=== PATIENT | male | born 1985 | race Caucasian/White ===

== ENCOUNTER 2016-09-09 11:09 | Emergency (ER) | payer OTHER ==
--- NOTE | 2016-09-09 12:46 | EDPHY ---
H & P Stated Complaint: oral lesions/st Time Seen by Provider: 09/09/16 12:13 HPI/ROS: CHIEF COMPLAINT: sore throat, sore on tongue and lip HISTORY OF PRESENT ILLNESS: 31-year-old male presents to the emergency department complaining of a sore throat and a sore on his lower lip and tongue that are painful. Patient denies fevers or chills, no abdominal pain, no difficulty urinating, dysuria, urinary frequency, urgency. Patient reports having oral sex with 2 different men last week. Patient takes Truvada for pre exposure prophylaxis. Denies urinary symptoms, joint pain, penile discharge, abdominal pain, nausea vomiting or diarrhea. REVIEW OF SYSTEMS: A comprehensive 10 point review of systems is otherwise negative aside from elements mentioned in the history of present illness. Source: Patient Exam Limitations: No limitations - Personal History Current Tetanus/Diphtheria Vaccine: Yes Tetanus Vaccine Date: 2009 - Medical/Surgical History Hx Asthma: No Hx Chronic Respiratory Disease: No Hx Diabetes: No Hx Cardiac Disease: No Hx Renal Disease: No Hx Cirrhosis: No Hx Alcoholism: No Hx HIV/AIDS: No Hx Splenectomy or Spleen Trauma: No Other PMH: HX: SZ, Depression, anxiety disorder, aspergers, OCD - Social History Smoking Status: Former smoker - Physical Exam Exam: General: Alert, nontoxic. ENT: Tympanic membranes clear, external auditory canal, external ear and surrounding soft tissue including over the mastoid unremarkable. Nasopharynx is not injected, there is no rhinorrhea. Oropharynx with erythema. There is exudate. No tonsillar hypertrophy. No asymmetry. The uvula is midline. No elevation of tongue. There is no hoarseness. No drooling, patient has good control of their oral secretions. No trismus. No stridor. Herpetic like lesions to inside lower lip and middle posterior tongue, painful. Cardiac: Regular rate and rhythm. Respiratory: Lungs clear to auscultation bilaterally. Neurological: no meningismus. Skin: No rashes. Constitutional: Initial Vital Signs Temperature (C) 36.7 C 09/09/16 11:17 Heart Rate 88 09/09/16 11:17 Respiratory Rate 20 09/09/16 11:17 Blood Pressure 118/80 09/09/16 11:17 O2 Sat (%) 94 09/09/16 11:17 O2 Delivery Mode Room Air Allergies/Adverse Reactions: atomoxetine HCl [From Strattera] Allergy (Mild, Verified 09/09/16 11:16) LOWERS SEIZURE THRESHHOLD hydrocodone [Hydrocodone] Allergy (Mild, Verified 09/09/16 11:16) NAUSEA Sulfa (Sulfonamide Antibiotics) Allergy (Verified 09/09/16 11:16) Rash tramadol Allergy (Verified 09/09/16 11:16) SEIZURE Home Medications: Medication Instructions Recorded Methamphetamine HCl [Desoxyn] 10 mg PO DAILY@1800 10/22/13 Methamphetamine HCl [Desoxyn] 15 mg PO DAILY@1200 10/22/13 Methamphetamine HCl [Desoxyn] 20 mg PO DAILY 10/22/13 Truvada 100 mg-150 mg Tablet 07/04/16 Acyclovir 400 mg PO TID #30 tablet 09/09/16 Oxycodone HCl 5 mg PO Q4-6PRN PRN #10 tablet 09/09/16 Medical Decision Making ED Course/Re-evaluation: 31-year-old male presents with a sore throat and sore on his tongue and lip. He is sexually active giving oral sex to multiple men on a regular basis. Rapid strep is negative, throat was swabbed for gonorrhea, lip and tongue sores were swapped for HSV. Patient is treated with IM Rocephin and Zithromax for gonorrhea, he has been discharged with a prescription for acyclovir for the sore on his tongue and lips thought to be HSV. Patient agrees to follow up with his primary care doctor or [place] where he is followed this next week for re-evaluation. He is given strict return precautions for worsening symptoms. Differential Diagnosis: Diagnosis considered but not limited to STD, strep pharyngitis, viral pharyngitis - Data Points Laboratory Results: 09/09/16 09/09/16 09/09/16 Unknown 13:35 13:35 HSV Source Description Pending HSV I DNA PCR Pending HSV II DNA PCR Pending N.gonorrhoeae RNA (TMA) Pending Group A Strep Screen Group A Strep DNA Pending 09/09/16 11:20 HSV Source Description HSV I DNA PCR HSV II DNA PCR N.gonorrhoeae RNA (TMA) Group A Strep Screen NEGATIVE (NEGATIVE) Group A Strep DNA Medications Given: Discontinued Medications Azithromycin (Zithromax) 1,000 mg PO EDNOW ONE PRN Reason: Protocol Stop: 09/09/16 13:17 Last Admin: 09/09/16 13:46 Dose: 1,000 mg Ceftriaxone Sodium (Rocephin Im Syringe) 250 mg IM EDNOW ONE PRN Reason: Protocol Stop: 09/09/16 13:17 Last Admin: 09/09/16 14:15 Dose: 250 mg Ceftriaxone Sodium (Rocephin Im Syringe) 250 mg IM ONCE ONE Stop: 09/09/16 14:01 Last Admin: 09/09/16 14:17 Dose: Not Given Departure - Departure Disposition: Home, Routine, Self-Care Clinical Impression: Acute pharyngitis Qualifiers: Pharyngitis/tonsillitis etiology: unspecified etiology Qualified Code(s): J02.9 - Acute pharyngitis, unspecified Condition: Good Instructions: Sexually Transmitted Diseases (ED), Pharyngitis (ED) Additional Instructions: Take 600 mg of ibuprofen every 8 hours with food, take 5 mg of oxycodone every 4 -6 hours as needed for severe pain. Take the acyclovir as prescribed. Follow up with Dr. Rowley or Dr. Hunter next week for re-evaluation. Return to the emergency department for worsening symptoms, new symptoms or concerns. Referrals: SUMANTH ROWLEY [Primary Care Provider] - As per Instructions Prescriptions: Acyclovir 400 mg PO TID #30 tablet Oxycodone HCl 5 mg PO Q4-6PRN PRN #10 tablet PRN Reason: Pain, Breakthrough
[2016-09-09] MEDS ORDERED: CEFTRIAXONE IM 350 MG/ML SYRINGE IM ONE ×2 (13:16→14:00)
[2016-09-09] MEDS ORDERED: AZITHROMYCIN 250 MG TAB PO ONE (13:16)
[2016-09-09 14:18] VITALS: BP 123/72; PULSE 79; RESP 16; TEMP 98.2; O2SAT 92
[2016-09-09] MEDS ORDERED: PENICILLIN VK 500 MG TAB PO ONE (20:08)
[2016-09-09] MEDS ORDERED: PENICILLIN VK 250 MG TAB ONE (20:26)
[2016-09-11 21:47] LABS: SPECIMEN SOURCE LIP AND TONGUE
== END 2016-09-09 14:41 | disposition home or self-care (01) ==
DX: J02.9 Acute pharyngitis, unspecified (principal); Z87.891 Personal history of nicotine dependence
CPT/HCPCS: 87529-90; J0696

== ENCOUNTER 2016-09-10 17:28 | Emergency (ER) | payer OTHER ==
[2016-09-10 17:33] VITALS: BP 131/83; PULSE 90; RESP 16; TEMP 98.8; O2SAT 93
[2016-09-10] MEDS ORDERED: DEXAMETHASONE 4 MG TAB PO ONE (18:08)
--- NOTE | 2016-09-10 18:08 | EDPHY ---
H & P Stated Complaint: Sore throat;seen here yesterday HPI/ROS: CHIEF COMPLAINT: Sore throat, mouth pain HISTORY OF PRESENT ILLNESS: several days duration of sore throat and mouth pain. Moderate to severe pain that has worsened since yesterday. Pain is all over the mouth and tongue. No fever. No difficulty swelling and does have odynophagia. No headache or dizziness. No chest or back pain or urinary complaints. He was seen here and diagnosed with strep pharyngitis and possible sexually transmitted infection. He was treated with Rocephin and Zithromax and discharged home with penicillin and pain medications. He says the pain medication is almost out and not improved his pain enough. Worse with any intake by mouth. No other associated complaints or modifying factors. REVIEW OF SYSTEMS: Ten systems reviewed and are negative unless otherwise noted in the HPI EXAMINATION General Appearance: Alert, no distress Head: normocephalic, atraumatic Eyes: Pupils equal and round, no conjunctival pallor or injection ENT, Mouth: Mucous membranes moist . There are multiple aphthous ulcers to the tongue and mucosa. Airway is patent. No posterior edema but there is erythema and purulence of the tonsils. No abnormality of the floor of the mouth. Neck: Normal inspection, supple, non-tender There is anterior cervical lymphadenopathy. Respiratory: No distress or retractions. Skin: Warm and dry, no rash Extremities: Nontender, no pedal edema Psychiatric: Mood and affect normal DIFFERENTIAL DIAGNOSES: Including but not limited to Strep pharyngitis, aphthous ulcers, HSV stomatitis, gingivostomatitis MDM: 6:05 p.m. strep pharyngitis with stomatitis and vesicular lesions of the mouth. The patient was treated with Rocephin and Zithromax yesterday. He was discharged home on penicillin and pain medications. His pain is significantly worse. He is in no acute distress, and his airway is intact. I will treat him with further pain medication and dose of steroid. Likely herpetic infection of the mouth on top of a positive strep pharyngitis. He was treated prophylactically for gonorrhea and chlamydia yesterday. Patient is comfortable with this plan and will follow up with [facility] for further care. SUPERVISION: This patient was independently evaluated without the aide of supervising physician. Source: Patient, Old records Exam Limitations: No limitations - Personal History Current Tetanus Diphtheria and Acellular Pertussis (TDAP): Yes Tetanus Vaccine Date: 2009 - Medical/Surgical History Hx Asthma: No Hx Chronic Respiratory Disease: No Hx Diabetes: No Hx Cardiac Disease: No Hx Renal Disease: No Hx Cirrhosis: No Hx Alcoholism: No Hx HIV/AIDS: No Hx Splenectomy or Spleen Trauma: No Other PMH: HX: SZ, Depression, anxiety disorder, aspergers, OCD - Social History Smoking Status: Former smoker Constitutional: Initial Vital Signs Temperature (C) 98.8 F 09/10/16 17:31 Heart Rate 90 09/10/16 17:31 Respiratory Rate 16 09/10/16 17:31 Blood Pressure 131/83 H 09/10/16 17:31 O2 Sat (%) 93 09/10/16 17:31 O2 Delivery Mode Room Air Allergies/Adverse Reactions: atomoxetine HCl [From Strattera] Allergy (Mild, Verified 09/10/16 17:30) LOWERS SEIZURE THRESHHOLD hydrocodone [Hydrocodone] Allergy (Mild, Verified 09/10/16 17:30) NAUSEA Sulfa (Sulfonamide Antibiotics) Allergy (Verified 09/10/16 17:30) Rash tramadol Allergy (Verified 09/10/16 17:30) SEIZURE Home Medications: Medication Instructions Recorded Methamphetamine HCl [Desoxyn] 10 mg PO DAILY@1800 10/22/13 Methamphetamine HCl [Desoxyn] 15 mg PO DAILY@1200 10/22/13 Methamphetamine HCl [Desoxyn] 20 mg PO DAILY 10/22/13 Truvada 100 mg-150 mg Tablet 07/04/16 Acyclovir 400 mg PO TID #30 tablet 09/09/16 Oxycodone HCl 5 mg PO Q4-6PRN PRN #10 tablet 09/09/16 Lidocaine 2% Viscous 10 ml MM Q6 PRN #100 ml 09/10/16 Penicillin V Potassium [Penicillin 500 mg PO 09/10/16 VK] oxyCODONE HCL/ACETAMINOPHEN 1 each PO Q6 PRN #20 tablet 09/10/16 [Percocet 7.5-325 mg Tablet] Departure - Departure Disposition: Home, Routine, Self-Care Clinical Impression: Strep pharyngitis, Stomatitis Condition: Good Instructions: Canker Sores (ED), Oral Mucositis (ED) Additional Instructions: Follow up with [facility] as previously discussed. Return to the ER for worsening pain Referrals: SUMANTH HEADLEY [Primary Care Provider] - As per Instructions Prescriptions: Lidocaine 2% Viscous 10 ml MM Q6 PRN #100 ml PRN Reason: Pain, Mild oxyCODONE HCL/ACETAMINOPHEN [Percocet 7.5-325 mg Tablet] 1 each PO Q6 PRN #20 tablet PRN Reason: Pain, Mild
[2016-09-10] MEDS ORDERED: DEXAMETHASONE 10 MG/ML VIAL ONE (18:58)
[2016-09-10] MEDS ORDERED: DEXAMETHASONE VARIABLE DOSE IVP/PO ONE (19:00)
== END 2016-09-10 19:11 | disposition home or self-care (01) ==
DX: K12.1 Other forms of stomatitis (principal); J02.0 Streptococcal pharyngitis; Z87.891 Personal history of nicotine dependence

== ENCOUNTER 2017-02-02 12:56 | Emergency (ER) | payer OTHER ==
[2017-02-02 13:01] VITALS: BP 123/80
[2017-02-02] MEDS ORDERED: LET GEL TOPICAL 1 EA SYR TP ONE (13:04)
--- NOTE | 2017-02-02 13:07 | EDPHY ---
H & P Stated Complaint: FALL SKATEBOARDING, +LOC - Personal History Current Tetanus/Diphtheria Vaccine: Yes Tetanus Vaccine Date: 2009 - Medical/Surgical History Hx Asthma: No Hx Chronic Respiratory Disease: No Hx Diabetes: No Hx Cardiac Disease: No Hx Renal Disease: No Hx Cirrhosis: No Hx Alcoholism: No Hx HIV/AIDS: No Hx Splenectomy or Spleen Trauma: No Other PMH: HX: SZ, Depression, anxiety disorder, aspergers, OCD - Social History Smoking Status: Former smoker Time Seen by Provider: 02/02/17 13:02 Constitutional: Initial Vital Signs Temperature (C) 36.8 C 02/02/17 12:58 Heart Rate 96 02/02/17 12:58 Respiratory Rate 16 02/02/17 12:58 Blood Pressure 123/80 H 02/02/17 12:58 O2 Sat (%) 96 02/02/17 12:58 Allergies/Adverse Reactions: atomoxetine HCl [From Strattera] Allergy (Mild, Verified 09/10/16 17:30) LOWERS SEIZURE THRESHHOLD Sulfa (Sulfonamide Antibiotics) Allergy (Verified 09/10/16 17:30) Rash tramadol Allergy (Verified 09/10/16 17:30) SEIZURE Home Medications: Medication Instructions Recorded Methamphetamine HCl [Desoxyn] 10 mg PO DAILY@1800 10/22/13 Methamphetamine HCl [Desoxyn] 15 mg PO DAILY@1200 10/22/13 Methamphetamine HCl [Desoxyn] 20 mg PO DAILY 10/22/13 Truvada 100 mg-150 mg Tablet 07/04/16 Acyclovir 400 mg PO TID #30 tablet 09/09/16 oxyCODONE HCL [Oxycodone HCl] 5 mg PO Q4-6PRN PRN #10 tablet 09/09/16 Lidocaine 2% Viscous 10 ml MM Q6 PRN #100 ml 09/10/16 Penicillin V Potassium [Penicillin 500 mg PO 09/10/16 VK] oxyCODONE HCL/ACETAMINOPHEN 1 each PO Q6 PRN #20 tablet 09/10/16 [Percocet 7.5-325 mg Tablet] Medical Decision Making - Diagnostics Imaging Results: Imaging Impressions Cervical Spine CT 02/02/17 13:03 Impression: 1. No significant intracranial abnormality seen. 2. Normal CT cervical spine. 3. Small chip fracture suspected along the left anterior occipital condyle. Findings discussed with Mikhail Rosen MD at 13:58 hour, 02/02/2017. Head CT 02/02/17 13:03 Impression: 1. No significant intracranial abnormality seen. 2. Normal CT cervical spine. 3. Small chip fracture suspected along the left anterior occipital condyle. Findings discussed with Mikhail Rosen MD at 13:58 hour, 02/02/2017. Procedures: My involvement the care this patient is solely for the procedure. Please see the note of Dr. Rosen for all other aspects of care PROCEDURE: Laceration repair Consent: Verbal Location: Left side of scalp, just left of midline Length of repair: 2.5 cm, irregular shaped and stellate Complexity: Simple Layer involvement: Single Anesthesia: Local, 1% lidocaine without epinephrine, 5 mL Irrigation: Extensive Debridement: None Procedure description: Following good anesthesia, the wound was copiously irrigated. Wound bed was explored and there is no foreign body noted. There is no injury to her compromise of the gala or underlying osseous school. Wound borders were approximated well with good hemostasis. Tolerated well without complication. Suture/Staple material: 4 prosper Wound care: Routine as discussed Suture/Staple removal: 10 Days (Feliz Wright) ED Course/Re-evaluation: CHIEF COMPLAINT: Fall off skateboard HISTORY OF PRESENT ILLNESS: Healthy 31-year-old gentleman who had something fell off his skateboard. He hit the left side of his forehead and the top of his head. He is complaining specifically of a brief loss of consciousness and some nausea. He denies any neurologic deficits. He also has some abrasions and lacerations on the left side of his forehead and face and his anterior scalp please see physical exam for details. He otherwise is on injury. He also has some mild neck pain along the occiput. REVIEW OF SYSTEMS: A 10 point review of systems was performed and is negative with the exception of the elements mentioned in the history of present illness. PHYSICAL EXAM: HR, BP, O2 Sat, RR. Temp noted General Appearance: Alert, well hydrated, appropriate, and non-toxic appearing. Head: Atraumatic without scalp tenderness or obvious injury Eyes: Pupils equal, round, reactive to light and accommodation, EOMI, no trauma , no injection. Ears: Clear bilaterally, no perforation, normal landmarks Nose: Atraumatic, no rhinorrhea, clear. Throat: There is no erythema or exudates, no lesions, normal tonsils, mucus membranes moist. Neck: Supple, 2+ carotid upstroke, nontender, no lymphadenopathy. Respiratory: No retractions, no distress, no wheezes, and no accessory muscle use. Lungs are clear to auscultation bilaterally. Cardiovascular: Regular rate and rhythm, no murmurs, rubs, or gallops. Bilateral carotid, radial, dorsalis pedis, and posterior tibial pulses intact. Good capillary refill all extremities. Gastrointestinal: Abdomen is soft, nontender, non-distended, no masses, no rebound, no guarding, no peritoneal signs. Musculoskeletal: Pain at the top of the occiput collars been left on until CT scan. Normal active ROM of all extremities, atraumatic. Neurological: Alert, appropriate, and interactive. The patient has normal DTRs and non-focal cranial nerves, motor, sensory, and cerebellar exam. Skin: Numerous abrasions and lacerations left eyebrow left forehead top of the forehead and knuckles. Please see Candis right dictation for repairs. No rashes, good turgor, no nodules on palpation. Past medical history: Patient denies Past surgical history: Patient denies Family history: Noncontributory Social history: Single, employed, does not abuse tobacco drugs or alcohol DIAGNOSTICS/PROCEDURES/CRITICAL CARE TIME: Study: CT of the head and cervical spine Indication: trauma Results: CT scan of the head and cervical spine was obtained. The results of the study are tiny chip fracture off the left occipital condyle otherwise unremarkable. The study was read by the radiologist, Dr. David Donato. I viewed the images myself on the PACS system. DIFFERENTIAL DIAGNOSIS: The differential diagnosis for the patient's trauma included but was not limited to intracranial injury, long bone and pelvic bone fractures, spinal injury, intra-abdominal injury, and intra-thoracic injury. MEDICAL DECISION MAKING: This patient had a loss of consciousness after a skateboard accident. He has numerous abrasions and lacerations. Physician ob gyn physician assistant Corwin Wright will repair his lacerations and abrasions. We have applied Lat to those abrasions and are clean them thoroughly. In addition he is getting a CT scan of his head and neck. This patient has a small chip fracture over the left occipital condyle. All of his wounds have been thoroughly cleansed and repaired. I have spoke to Dr. Vikram Licea from Neurosurgery who is reviewing the films to see if there is any further treatment needed for the occipital condyle chip fracture. Dr. Rose reviewed the films and recommends the patient have a soft collar for a week or so and follow up with them. He does not actually feel like this tiny bony fragment is a chip fracture from an acute trauma any feels like it is a small degenerative change may be a small osteophyte. Regardless, the patient is having no neurologic problems. The patient has very minimal pain at the base of his skull. We will give him a comfortable calling him follow up with Dr. Rose. Also given pain meds. (Mikhail Rosen) - Data Points Medications Given: Discontinued Medications Ondansetron HCl (Zofran Odt) 4 mg PO EDNOW ONE Stop: 02/02/17 13:36 Last Admin: 02/02/17 13:38 Dose: 4 mg Oxycodone/Acetaminophen (Percocet 5/325) 2 tab PO EDNOW ONE Stop: 02/02/17 13:35 Last Admin: 02/02/17 13:38 Dose: 2 tab Tetracaine/Epinephrine/Lidocaine (Let Gel Topical) 2 ea TP EDNOW ONE Stop: 02/02/17 13:05 Last Admin: 02/02/17 13:15 Dose: 1 ea Departure - Departure Disposition: Home, Routine, Self-Care Clinical Impression: Abrasion Fall from skateboard Qualifiers: Encounter type: initial encounter Qualified Code(s): V00.131A - Fall from skateboard, initial encounter Fracture of occipital condyle Qualifiers: Encounter type: initial encounter Fracture type: closed Laterality: left Qualified Code(s): S02.113A - Unspecified occipital condyle fracture, initial encounter for closed fracture Face lacerations Qualifiers: Encounter type: initial encounter Qualified Code(s): S01.81XA - Laceration without foreign body of other part of head, initial encounter Condition: Good Instructions: Skull Fracture (ED), Abrasion (ED), Laceration (ED) Additional Instructions: Wear the soft collar for 1-2 weeks and then follow up with Neurosurgery. Referrals: Patient,NotPresent [Primary Care Provider] - As per Instructions Vikram Licea MD [Medical Doctor] - As per Instructions
[2017-02-02] MEDS ORDERED: OXYCODONE/APAP 5/325 TAB PO ONE (13:34)
[2017-02-02] MEDS ORDERED: ONDANSETRON DISINTEGRATING 4 MG TAB PO ONE (13:35)
[2017-02-02 14:55] VITALS: PULSE 80; RESP 18; TEMP 98.6; O2SAT 94
== END 2017-02-02 14:54 | disposition home or self-care (01) ==
LOC: EDUNIT#
PROC: 0HQ0XZZ Repair Scalp Skin, External Approach (ICD-10-PCS; principal; 2017-02-02)
DX: S02.113A Unspecified occipital condyle fracture, initial encounter for closed fracture (principal); S01.81XA Laceration without foreign body of other part of head, initial encounter; Z87.891 Personal history of nicotine dependence; V00.131A Fall from skateboard, initial encounter; Y93.51 Activity, roller skating (inline) and skateboarding

== ENCOUNTER 2017-07-20 09:55 | Emergency (ER) | payer OTHER ==
[2017-07-20 10:05] VITALS: BP 116/89; PULSE 91; RESP 16; TEMP 97.5; O2SAT 95
--- NOTE | 2017-07-20 10:21 | EDPHY ---
H & P Time Seen by Provider: 07/20/17 10:06 HPI/ROS: CHIEF COMPLAINT: Sore throat since yesterday HISTORY OF PRESENT ILLNESS: 32-year-old immunocompetent male complaining sore throat since yesterday. No flu-like symptoms. His boyfriend tested positive for strep pharyngitis 3 days ago. No fever no chills. No nausea or vomiting. No change in voice. No nuchal rigidity. No chest pain. No abdominal pain. No rash. No headache. REVIEW OF SYSTEMS: A ten point review of systems was performed and is negative with the exception of the items mentioned in the HPI PAST MEDICAL & SURGICAL HISTORY: No pertinent medical or surgical history SOCIAL HISTORY: Student PHYSICAL EXAM (Prior to examination, patient consented to physical exam, hands were washed and my usual and customary physical exam procedures followed) 1) GENERAL: Well-developed, well-nourished, alert and oriented. Appears nontoxic 2) HEAD: Normocephalic, atraumatic 3) HEENT: Pupils equal, round, reactive to light bilaterally. Sclera anicteric. Oropharynx: Bilaterally enlarged, symmetrical, exudate of tonsils. No trismus no drooling. No hot potato voice. No signs of peritonsillar abscess Ears bilaterally with normal tympanic membranes. 4) NECK: Full range of motion, no meningeal signs. 5) LUNGS: Clear auscultation bilaterally, no wheezes, no rhonchi, no retractions. 6) HEART: Regular rate and rhythm, no murmur, no heave, no gallop. 7) ABDOMEN: [No guarding, no rebound, no focal tenderness, negative McBurney's,, 8) MUSCULOSKELETAL: No peripheral edema or discoloration. 9) BACK: No visual or palpable abnormality. 10) SKIN: No rash, no petechiae. 11) Psychiatric: Patient is oriented X 3, there is no agitation. DIFFERENTIAL DIAGNOSIS: In no particular order including but not limited to strep pharyngitis, peritonsillar abscess, viral pharyngitis Smoking Status: Never smoked Constitutional: Initial Vital Signs Temperature (C) 36.4 C 07/20/17 10:02 Heart Rate 91 07/20/17 10:02 Respiratory Rate 16 07/20/17 10:02 Blood Pressure 116/89 H 07/20/17 10:02 O2 Sat (%) 95 07/20/17 10:02 O2 Delivery Mode Room Air Allergies/Adverse Reactions: atomoxetine HCl [From Strattera] Allergy (Mild, Verified 09/10/16 17:30) LOWERS SEIZURE THRESHHOLD Sulfa (Sulfonamide Antibiotics) Allergy (Verified 09/10/16 17:30) Rash tramadol Allergy (Verified 09/10/16 17:30) SEIZURE Home Medications: Medication Instructions Recorded Methamphetamine HCl [Desoxyn] 10 mg PO DAILY@1800 10/22/13 Methamphetamine HCl [Desoxyn] 15 mg PO DAILY@1200 10/22/13 Methamphetamine HCl [Desoxyn] 20 mg PO DAILY 10/22/13 Truvada 100 mg-150 mg Tablet 07/04/16 Acyclovir 400 mg PO TID #30 tablet 09/09/16 oxyCODONE HCL [Oxycodone HCl] 5 mg PO Q4-6PRN PRN #10 tablet 09/09/16 Lidocaine 2% Viscous 10 ml MM Q6 PRN #100 ml 09/10/16 Penicillin V Potassium [Penicillin 500 mg PO 09/10/16 VK] oxyCODONE HCL/ACETAMINOPHEN 1 each PO Q6 PRN #20 tablet 09/10/16 [Percocet 7.5-325 mg Tablet] Ondansetron Odt [Zofran Odt 4 mg 4 mg PO Q4 PRN #10 tab 02/02/17 (RX)] oxyCODONE IR [Oxycodone Ir (*)] 5 - 10 mg PO Q6 PRN #20 tab 02/02/17 Ibuprofen [Motrin (*)] 800 mg PO Q6 #15 tab 07/20/17 Penicillin V Potassium [Pen Vk] 500 mg PO Q6 10 Days tab 07/20/17 MDM/Departure - MDM ED Course/Re-evaluation: High clinical suspicion for strep pharyngitis based on patient's presenting symptoms, his boyfriend was diagnosed with strep pharyngitis recently as well. Plan will be empiric treatment. Doubt peritonsillar abscess. Usual and customary pharyngitis precautions and instructions provided. Care of patient under supervision of secondary supervising physician Dr Rosen . - Depart Disposition: Home, Routine, Self-Care Clinical Impression: Acute streptococcal pharyngitis Condition: Good Instructions: Strep Throat (DC), Strep Throat (ED) Additional Instructions: Return to the ER immediately if you cannot swallow, have drooling, fevers, neck stiffness, cannot open your jaw, or any other symptoms that concern you. Prescriptions: Ibuprofen [Motrin (*)] 800 mg PO Q6 #15 tab Penicillin V Potassium [Pen Vk] 500 mg PO Q6 10 Days tab Referrals: SUMANTH HEADLEY [Primary Care Provider] - 3-4 days, if not improved
== END 2017-07-20 11:04 | disposition home or self-care (01) ==
DX: J02.0 Streptococcal pharyngitis (principal)

== ENCOUNTER 2017-12-29 09:59 | Emergency (ER) | payer OTHER ==
[2017-12-29] MEDS ORDERED: LET GEL TOPICAL 1 EA SYR TP ONE (10:19)
--- NOTE | 2017-12-29 10:24 | EDPHY ---
H & P Smoking Status: Never smoked Time Seen by Provider: 12/29/17 10:14 HPI/ROS: CHIEF COMPLAINT: Seizure HISTORY OF PRESENT ILLNESS: The patient is a 32-year-old male with a history of epilepsy who presents emergency department after having a seizure and subsequent fall. Patient was going to the store to get some food for breakfast. Patient was witnessed to have seizure activity and fall the ground. He has a large laceration on his head. He describes mild face discomfort. Patient has a mild headache. Patient denies any neck pain. No chest pain or shortness of breath. No abdominal pain. No focal weakness or numbness. Patient states he has roughly 1 seizure every couple of months. He is not taking any anti seizure medication. REVIEW OF SYSTEMS: My complete review of systems is negative except as mentioned in the HPI. ( China Herron) Past Medical/Surgical History: Includes epilepsy, depression, anxiety, Asperger's, OCD Past surgical history: Right shoulder surgery (China Herron) Physical Exam: Vitals noted. Heart rate 111. GENERAL: No acute distress, alert.] HEAD: The patient has a cyst the 5 cm laceration vertically on his forehead. There is mild hematoma. No crepitus. EYES: PERRLA, EOMI, normal to inspection. ENT: The patient is nose is slightly offset to the left. He states this is his baseline. Airway intact, no dental or oral injury, no malocclusion, no hemotympanum, normal external examination. There is a 1 cm laceration on the right lateral aspect of his cheek. NECK: The trachea is midline. There is no crepitus. The C-spine is nontender. NEXUS criteria is negative (no midline tenderness, no distracting injury, no altered mental status, no recent alcohol use, no focal neurologic deficit). RESPIRATORY: Clear to auscultation bilaterally, no rales, rhonchi or wheezing. There is no crepitus or palpable rib fractures. CVS: Regular rate and rhythm, no rubs, murmurs, or gallops. ABDOMEN: Soft, nontender, nondistended, normal bowel sounds, no bruising or abrasions. Pelvis: Stable. No tenderness palpation. Hips full range of motion. GENITAL/RECTAL: Normal external exam. BACK: Normal to inspection, no spinal tenderness, no spinal step off, no notable bruising or abrasions. SKIN: Normal color, warm, dry. No pallor or diaphoresis. EXTREMITIES: Right upper extremity: The patient has abrasions on his right hand. There is no tenderness palpation. Neurovascular intact distally. Left upper extremity: Patient has abrasions on his left hand. There is no tenderness to palpation. Neurovascular intact distally. Right lower extremity: Atraumatic. No visible signs of trauma. No tenderness palpation. Neurovascular intact distally. Left lower extremity: Atraumatic. No visible signs of trauma. No tenderness palpation. Neurovascular intact distally. NEURO/PSYCH: Alert and oriented x 3, GCS 15, normal mood and affect, normal motor sensory exam. (China Herron) Constitutional: Initial Vital Signs Temperature (C) 36.8 C 12/29/17 10:09 Heart Rate 111 H 12/29/17 10:09 Respiratory Rate 18 12/29/17 10:09 Blood Pressure 134/86 H 12/29/17 10:09 O2 Sat (%) 94 12/29/17 10:09 O2 Delivery Mode Room Air Allergies/Adverse Reactions: atomoxetine HCl [From Strattera] Allergy (Mild, Verified 12/29/17 10:07) LOWERS SEIZURE THRESHHOLD Sulfa (Sulfonamide Antibiotics) Allergy (Verified 12/29/17 10:07) Rash tramadol Allergy (Verified 12/29/17 10:07) SEIZURE Home Medications: Medication Instructions Recorded Methamphetamine HCl [Desoxyn] 10 mg PO DAILY@1800 10/22/13 Medical Decision Making - Diagnostics Imaging Results: Imaging Impressions Head CT 12/29/17 10:21 Impression: Scalp laceration with no acute intracranial findings. Findings discussed with CHINA HERRON 12/29/2017 at 11:01. Procedures: I was asked by Dr. China Herron to repair facial lacerations. Laceration repair #1. Verbal consent was obtained from the patient. The 6 cm laceration on the anterior central forehead was anesthetized using 1% lidocaine with epinephrine. The wound was irrigated with saline, draped and explored to its base with a gloved finger. There were no deep structures involved. The wound was repaired with 6 0 Vicryl, 4 sutures and 6 0 Prolene, 13 sutures. The wound repair was complex. The procedure was performed by myself. Laceration repair #2. Verbal consent was obtained from the patient. The 0.5 cm laceration on the right eyebrow was anesthetized using 1% lidocaine with epinephrine. The wound was irrigated with saline, draped and explored to its base with a gloved finger. There were no deep structures involved. The wound was repaired with 6 0 Prolene, 2 sutures. The wound repair was simple. The procedure was performed by myself. Laceration repair #3. Verbal consent was obtained from the patient. The 0.5 cm laceration on the right ear was anesthetized using 1% lidocaine with epinephrine. The wound was irrigated with saline, draped and explored to its base with a gloved finger. There were no deep structures involved. The wound was repaired with 6 0 Prolene , 1 suture. The wound repair was simple. The procedure was performed by myself. (Anna Marie Villanueva) ED Course/Re-evaluation: In the emergency department I discussed etiologies with the patient. I answered all his questions. He consented to head CT. He had no spinal tenderness. I do not feel he needs imaging of his spine. Head CT: No acute disease noted. Recheck the patient on numerous occasions. He was stable throughout his stay. He had no focal findings on his neuro exam. Patient's wounds were cleaned repaired and dressed. Please refer the note by the PA. Patient was given warnings prior to leaving. At the Time of discharge she was doing well. (China Herron) Differential Diagnosis: My differential includes but is not limited to laceration, contusion, subarachnoid hemorrhage, subdural hematoma, epidural hematoma, cerebral contusion, spinal injury (China Herron) Departure - Departure Disposition: Home, Routine, Self-Care Clinical Impression: Seizure Facial laceration Qualifiers: Encounter type: initial encounter Qualified Code(s): S01.81XA - Laceration without foreign body of other part of head, initial encounter Condition: Good Instructions: Laceration (ED), Head Injury (ED), Epilepsy (ED) Additional Instructions: Wound Care Follow-Up: Removal of sutures in 5 days. Suture removal is complimentary in uncomplicated cases. Infection or abnormal findings would require reevaluation by the MD. In that case, you may be billed. Referrals: Patient,NotPresent [Unknown] - As per Instructions
[2017-12-29 13:09] VITALS: BP 126/87
== END 2017-12-29 13:08 | disposition home or self-care (01) ==
LOC: EDUNIT#
PROC: 0HQ1XZZ Repair Face Skin, External Approach (ICD-10-PCS; principal; 2017-12-29)
PROC: 0HQ2XZZ Repair Right Ear Skin, External Approach (ICD-10-PCS; principal; 2017-12-29)
DX: S01.81XA Laceration without foreign body of other part of head, initial encounter (principal); S01.111A Laceration without foreign body of right eyelid and periocular area, initial encounter; S01.311A Laceration without foreign body of right ear, initial encounter; G40.909 Epilepsy, unspecified, not intractable, without status epilepticus; W01.0XXA Fall on same level from slipping, tripping and stumbling without subsequent striking against object, initial encounter; Y92.512 Supermarket, store or market as the place of occurrence of the external cause; Y99.8 Other external cause status; Y93.89 Activity, other specified

== ENCOUNTER → 2018-02-28 | Outpatient (CLI) | payer OTHER ==
--- NOTE | 2018-03-01 08:21 | CPEEG ---
[f rep st] ELECTROENCEPHALOGRAM FOUR-HOUR VIDEO EEG DATE OF STUDY: 02/28/2018 INTERPRETATION: This 4-hour video EEG recording is abnormal due to the presence of generalized atypi mayur spike and wave discharges. 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 The patient did not have any clinical events during the video EEG monitoring session. REPORT: This EEG contains 10 Hz alpha activity to the posterior head regions. The primary feature o f this recording was the presence of generalized atypical spike and wave discharges at baseline. The re was additional activation with photic stimulation (photoparoxysmal response) at 18 and 20 Hz flash frequency. In addition, there was activation of a spike and wave discharge during hyperventilation. The patient went on to get drowsy and fell asleep during the study. During drowsiness and sleep, t here was increased activation of generalized atypical spike and wave discharges. The patient did not have any clinical events during the video EEG monitoring session. /[id number]/MODL
== END ==
LOC: FCPNEURO 07:43
PROVIDERS: ATTEND Psychiatry & Neurology Neurology
DX: R56.9 Unspecified convulsions (principal)

== ENCOUNTER 2018-03-28 02:52 | Emergency (ER) | payer OTHER ==
--- NOTE | 2018-03-28 03:53 | EDPHY ---
H & P Stated Complaint: RIGHT ELBOW SWELLING AT JOINT SITE Time Seen by Provider: 03/28/18 03:03 HPI/ROS: Chief Complaint: Right elbow swelling HPI: 32-year-old male presenting with swelling over his right elbow for the last several days. Is getting increasingly tender. Is mildly warm to touch. He denies any trauma or injuries. Does not have a history of similar episodes. He has not had any skin rash or lesions. No fevers or chills. No decrease in range of motion. ROS: 10 systems were reviewed and were negative except those elements noted in the HPI. Social History: No smoking Family History: non-contributory Physical Exam: Gen: Awake, Alert, No Distress Ext: Right elbow has a moderately enlarged inflamed olecranon bursa. Is mildly tender to the touch. Is mildly warm to the touch. There is very small amount of erythema. He has full range of motion of his elbow. No bony tenderness. He is neurovascularly intact distally. Skin: no rash Neuro: CN II-XII intact, Sensation grossly intact, Strength 5/5 in bilateral upper and lower extremities - Personal History Current Tetanus/Diphtheria Vaccine: Yes Current Tetanus Diphtheria and Acellular Pertussis (TDAP): Yes Tetanus Vaccine Date: 2009 - Medical/Surgical History Hx Asthma: No Hx Chronic Respiratory Disease: No Hx Diabetes: No Hx Cardiac Disease: No Hx Renal Disease: No Hx Cirrhosis: No Hx Alcoholism: No Hx HIV/AIDS: No Hx Splenectomy or Spleen Trauma: No Other PMH: HX: SZ, Depression, anxiety disorder, aspergers, OCD, seizure d/o - Social History Smoking Status: Never smoked Constitutional: Initial Vital Signs Temperature (C) 37.1 C 03/28/18 02:55 Heart Rate 95 03/28/18 02:55 Respiratory Rate 18 03/28/18 02:55 Blood Pressure 132/87 H 03/28/18 02:55 O2 Sat (%) 94 03/28/18 02:55 O2 Delivery Mode Room Air Allergies/Adverse Reactions: atomoxetine HCl [From Strattera] Allergy (Mild, Verified 03/28/18 02:57) LOWERS SEIZURE THRESHHOLD Sulfa (Sulfonamide Antibiotics) Allergy (Verified 03/28/18 02:57) Rash tramadol Allergy (Verified 03/28/18 02:57) SEIZURE Home Medications: Medication Instructions Recorded Methamphetamine HCl [Desoxyn] 10 mg PO DAILY@1800 04/17/14 Cbd 03/28/18 Medical Decision Making Procedures: Procedure: Olecranon bursa aspiration. Indication: Rule out septic bursitis. Patient was prepped with chlorhexidine prep and draped with a sterile drape. Using sterile technique an 18 gauge needle was inserted into the olecranon bursa. A total of 15 mL of straw-colored fluid was aspirated. A Band-Aid was placed over the site. Patient tolerated well. There were no complications. Procedure performed by me. ED Course/Re-evaluation: Patient's bursal fluid is consistent with traumatic bursitis, no evidence of acute septic bursitis at this time. His elbow has been wrapped with an Samy wrap. Will discharge with follow-up with his primary care physician. - Data Points Laboratory Results: 03/28/18 03:30 Synovial Source SYNOVIAL Synovial Color ORANGE H (CLS/PALE YL) Synovial Appearance HAZY H (CLEAR) Synovial WBC 2114 /mm3 H /mm3 (0-150) Synovial RBC 3369 /mm3 H /mm3 (0-0) Departure - Departure Disposition: Home, Routine, Self-Care Clinical Impression: Olecranon bursitis Condition: Good Instructions: Elbow Bursitis (ED) Additional Instructions: Keep your right elbow wrapped, clean and dry. Follow up with her primary care physician in 4-5 days for recheck. Return emergency department for increasing swelling, redness, fever, streaking up your arm, or any other concerns. Referrals: SUMANTH HEADLEY [Primary Care Provider] - As per Instructions
[2018-03-28 04:43] VITALS: BP 115/71
== END 2018-03-28 04:41 | disposition home or self-care (01) ==
PROC: 0M933ZZ Drainage of Right Elbow Bursa and Ligament, Percutaneous Approach (ICD-10-PCS; principal; 2018-03-28)
DX: M70.21 Olecranon bursitis, right elbow (principal)

== ENCOUNTER 2018-05-08 11:22 | Emergency (ER) | payer OTHER ==
[2018-05-08 11:34] VITALS: BP 122/84
== END 2018-05-08 11:32 | disposition left against medical advice (07) ==
LOC: EDUNIT#
DX: Z53.21 Procedure and treatment not carried out due to patient leaving prior to being seen by health care provider (principal)

== ENCOUNTER 2018-05-22 23:12 | Emergency (ER) | payer OTHER ==
--- NOTE | 2018-05-22 23:43 | EDPHY ---
H & P Stated Complaint: SZ/HEAD INJ Time Seen by Provider: 05/22/18 23:26 HPI/ROS: Chief Complaint: Seizure, forehead laceration HPI: 33-year-old male with a history of a seizure disorder who takes Vimpat is presenting with a head injury after a seizure this evening. Patient states he woke up on the floor after having a seizure. He has a laceration below the hairline in his left forehead. 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 He has also had some sleep depravation. He believes he may have missed a dose of his seizure medications today. Last seizure was a month or 2 ago. He is presenting because of the laceration. He does not want any further workup for his seizures or head injury. ROS: 10 systems were reviewed and were negative except those elements noted in the HPI. PMH: Seizure disorder Social History: No smoking, no alcohol, no recreational drug use Family History: non-contributory Physical Exam: Gen: Awake, Alert, Airway Intact HEENT: Head: Patient has a 2 cm horizontal laceration below the hairline in his left forehead. There is no bony tenderness or step-offs Eyes: PERRLA, EOMI Nose: No epistaxis Mouth: Normal dentition, Airway patent, small right lower lip superficial laceration Face: No deformity Neck: non-tender, no stepoff, Full ROM without pain Chest: non-tender, lungs CTA Heart: normal heart tones Abd: soft, non-tender, atraumatic Pelvis: non-tender, stable to AP and Lateral compression Back: atraumatic, no midline tenderness Ext: atramatic, full ROM Skin: no rash Neuro: CN II-XII intact, Strength 5/5 in all extremities, sensation intact in all extremities - Personal History Current Tetanus Diphtheria and Acellular Pertussis (TDAP): Yes Tetanus Vaccine Date: 2009 - Medical/Surgical History Hx Asthma: No Hx Chronic Respiratory Disease: No Hx Diabetes: No Hx Cardiac Disease: No Hx Renal Disease: No Hx Cirrhosis: No Hx Alcoholism: No Hx HIV/AIDS: No Hx Splenectomy or Spleen Trauma: No Other PMH: HX: SZ, Depression, anxiety disorder, aspergers, OCD, seizure d/o, non compliance with sz medication - Social History Smoking Status: Never smoked Constitutional: Initial Vital Signs Temperature (C) 36.6 C 05/22/18 23:19 Heart Rate 112 H 05/22/18 23:19 Respiratory Rate 16 05/22/18 23:19 Blood Pressure 117/72 05/22/18 23:19 O2 Sat (%) 90 L 05/22/18 23:19 O2 Delivery Mode Room Air Allergies/Adverse Reactions: atomoxetine HCl [From Strattera] Allergy (Mild, Verified 03/28/18 02:57) LOWERS SEIZURE THRESHHOLD Sulfa (Sulfonamide Antibiotics) Allergy (Verified 03/28/18 02:57) Rash tramadol Allergy (Verified 03/28/18 02:57) SEIZURE Home Medications: Medication Instructions Recorded Cbd 03/28/18 Medical Decision Making Procedures: Procedure: Laceration repair. Verbal consent was obtained from the patient. The 2 cm laceration on the left forehead was anesthetized in the usual fashion. The wound was irrigated, draped and explored to its base with a gloved finger. There were no deep structures involved. No tendon injury was identified. The wound was repaired with 5, 5-0 Ethilon simple interrupted sutures. The wound repair was uncomplicated. The procedure was performed by myself. ED Course/Re-evaluation: 33-year-old male sustained a head laceration after after having a seizure. He has a known seizure disorder. He is currently awake alert oriented. He does not want any further evaluation. He is competent to make decision at this time. He has been given instructions to return. Sutures removed in 5 days. Departure - Departure Disposition: Home, Routine, Self-Care Clinical Impression: Seizure, Forehead laceration Condition: Good Instructions: Care For Your Stitches (ED), Laceration (ED), Epilepsy (ED) Additional Instructions: Sutures need to be removed in 5 days. You may return to the emergency department and we will be happy to remove them for you. Please make sure to maintain a regular sleep pattern and take your seizure medications in order to prevent breakthrough seizures. Return to the emergency department for further seizures, headache, nausea vomiting, neck pain, numbness, weakness, or any other concerns. Referrals: Patient,NotPresent [Primary Care Provider] - As per Instructions
[2018-05-23 00:06] VITALS: BP 128/79
== END 2018-05-23 00:05 | disposition home or self-care (01) ==
PROC: 0HQ1XZZ Repair Face Skin, External Approach (ICD-10-PCS; principal; 2018-05-22)
DX: S01.81XA Laceration without foreign body of other part of head, initial encounter (principal); R56.9 Unspecified convulsions; W19.XXXA Unspecified fall, initial encounter; Y92.9 Unspecified place or not applicable; Y93.9 Activity, unspecified; Y99.9 Unspecified external cause status